=== PATIENT | female | born 1990 | race Caucasian/White ===

== ENCOUNTER 2016-12-19 21:42 | Emergency (ER) | payer BC, OTHER ==
[~2016-12-19] VITALS: Ht 152.4 cm; Wt 62.6 kg
[~2016-12-19 21:42] MED LIST: FERROUS SULF PO; PRENATAL VITAMI1 T10 PO; PRENATALS
[2016-12-19 21:57] VITALS: BP 124/89
--- NOTE | 2016-12-19 22:35 | NUR ---
TO ER BED 3
--- NOTE | 2016-12-19 22:37 | NUR ---
PATIENT PRESENTS TO ED WITH ABD PAIN . PT C/O NAUSEA AND VOMITTING AND NO DIARRHEA; SKIN IS PINK/WARM/DRY; AAOX4 WITH EVEN AND STEADY GAIT; LUNGS CLEAR BL; HR EVEN AND REGULAR; PT DENIES ANY FEVER, CP, SOB, OR COUGH AT THIS TIME; PATIENT STATES PAIN OF 8/10 AT THIS TIME; VSS; PATIENT POSITIONED FOR COMFORT; HOB ELEVATED; BEDRAILS UP X2; BED DOWN. ER MD MADE AWARE OF PT STATUS.
[2016-12-19] MEDS ORDERED: NACL 0.9% 500 ML IV ONE (23:07)
--- NOTE | 2016-12-19 23:07 | NUR ---
Patient being evaluated by physician at bedside.
[2016-12-19] MEDS ORDERED: ONDANSETRON 4 MG/2 ML VIAL IVP ONE (23:10)
[2016-12-19] MEDS ORDERED: KETOROLAC 30 MG/ML VIAL IVP ONE (23:10)
--- NOTE | 2016-12-19 23:38 | NUR ---
PT TO XRAY
[2016-12-19] MEDS ORDERED: LIDOCAINE VISCOUS 2% 20 ML UDC PO ONE (23:40)
[2016-12-19] MEDS ORDERED: PANTOPRAZOLE 40 MG INJ VIAL IVP ONE (23:40)
[2016-12-19] MEDS ORDERED: ALUMINUM HYD/MAG/SIMETHICONE 30 ML UDC PO ONE (23:40)
[2016-12-19] MEDS ORDERED: DICYCLOMINE HCL LIQUID 10 MG/5 ML UDC PO ONE (23:40)
[2016-12-20 00:29] VITALS: BP 114/61
--- NOTE | 2016-12-20 00:30 | NUR ---
Patient discharged with v/s stable. Written and verbal after care instructions given and explained. Patient alert, oriented and verbalized understanding of instructions. Ambulatory with steady gait. All questions addressed prior to discharge. ID band removed. Patient advised to follow up with PMD. Rx of PROTONIX AND ZOFRAN given. Patient educated on indication of medication including possible reaction and side effects. Opportunity to ask questions provided and answered.
== END 2016-12-20 00:29 | disposition home or self-care (01) ==
LOC: MED 21:43
DX: K29.70 Gastritis, unspecified, without bleeding (principal)
CPT/HCPCS: 36415; 76705; 80053; 81025; 83690; 85025; 96361; 96374; 96375; 99285; C9113; J1885; J2405

== ENCOUNTER 2017-05-02 23:09 | Emergency (ER) | payer OTHER ==
[~2017-05-02] VITALS: Ht 152.4 cm; Wt 60.0 kg
[2017-05-02 23:17] VITALS: BP 117/81
--- NOTE | 2017-05-03 00:20 | NUR ---
TO ER BED 6
[2017-05-03] MEDS ORDERED: ALUMINUM HYD/MAG/SIMETHICONE 30 ML UDC PO ONE (00:35)
[2017-05-03] MEDS ORDERED: DICYCLOMINE HCL LIQUID 10 MG/5 ML UDC PO ONE (00:35)
[2017-05-03] MEDS ORDERED: LIDOCAINE VISCOUS 2% 20 ML UDC PO ONE (00:35)
--- NOTE | 2017-05-03 00:42 | NUR ---
PATIENT PRESENTS TO ED WITH C/O ABD PAIN . PT SKIN IS PINK/WARM/DRY; AAOX4 WITH EVEN AND STEADY GAIT; LUNGS CLEAR BL; HR EVEN AND REGULAR; PT DENIES ANY FEVER, CP, SOB, OR COUGH AT THIS TIME; PATIENT STATES PAIN OF 5/10 AT THIS TIME; VSS; PATIENT POSITIONED FOR COMFORT; HOB ELEVATED; BEDRAILS UP X2; BED DOWN. ER MD MADE AWARE OF PT STATUS.
[2017-05-03] MEDS ORDERED: PANTOPRAZOLE 40 MG TABEC PO ONE (00:55)
--- NOTE | 2017-05-03 01:30 | NUR ---
Patient discharged with v/s stable. Written and verbal after care instructions given and explained. Patient verbalized understanding. Ambulatory with steady gait. All questions addressed prior to discharge. Advised to follow up with PMD.
[2017-05-03 01:31] VITALS: BP 117/81
== END 2017-05-03 01:31 | disposition home or self-care (01) ==
LOC: MED 23:09
DX: K29.70 Gastritis, unspecified, without bleeding (principal); R03.0 Elevated blood-pressure reading, without diagnosis of hypertension
CPT/HCPCS: 81002; 81025; 99284

== ENCOUNTER 2017-09-25 18:22 | Emergency (ER) | payer OTHER ==
[~2017-09-25] VITALS: Ht 149.9 cm; Wt 64.6 kg
[2017-09-25 18:30] VITALS: BP 137/107
--- NOTE | 2017-09-25 18:39 | NUR ---
PT TO RM 11
[2017-09-25] MEDS ORDERED: PANTOPRAZOLE 40 MG INJ VIAL IVP ONE (18:45)
[2017-09-25] MEDS ORDERED: NACL 0.9% 500 ML IV ONE (18:45)
[2017-09-25] MEDS ORDERED: KETOROLAC 30 MG/ML VIAL IVP ONE (18:45)
--- NOTE | 2017-09-25 19:00 | NUR ---
PT TO ROOM 11, IN NAD. RESP EVEN AND UNLABORED, MOM AT BEDSIDE C/O EPIGASTRIC PAIN 06/14 RADIATING TO RLQ RT LOWER BACK STARTED TODAY [id number]; DENIESN/V/D; TOOK OMEPRAZOLE PRESCRIBE ON LAST VISIT 05/03/17 FOR SAME S/S HX; DENIES RX; OMEPRAZOLE
[2017-09-25] MEDS ORDERED: NITROGLYCERIN 0.4 MG TAB SL ONE (19:35)
--- NOTE | 2017-09-25 19:45 | NUR ---
PT TAKEN TO CT SCAN VIA WHEEL CHAIR.
[2017-09-25 20:14] LABS: BASOPHILS # (AUTO) 0.1 K/uL (0.00-0.22); BASOPHILS % (AUTO) 0.8 % (0.0-2.0); EOSINOPHILS % (AUTO) 0.3 % (0.0-4.0); HEMATOCRIT 39.9 % (36-48); LYMPHOCYTES # (AUTO) 1.5 K/uL (2.5-16.5); LYMPHOCYTES % (AUTO) 20.2 % (20.5-51.1); MEAN CORPUSCULAR HEMOGLOBIN 27 pg (27-31); MEAN CORPUSCULAR HGB CONC 33 g/dL (33-37); MEAN CORPUSCULAR VOLUME 82 fL (80-94); MONOCYTES # (AUTO) 0.5 K/uL (0.8-1.0); MONOCYTES % (AUTO) 6.2 % (1.7-9.3); NEUTROPHILS # (AUTO) 5.4 K/uL (1.8-7.7); NEUTROPHILS % (AUTO) 72.5 % (42.2-75.2); PLATELET COUNT (AUTO) 351 K/uL (140-450); RED BLOOD CELL COUNT(AUTO) 4.85 MIL/uL (4.20-5.40); WHITE BLOOD COUNT (AUTO) 7.5 K/uL (4.8-10.8)
[2017-09-25 20:23] LABS: ANION GAP 12.9 (8-16); CARBON DIOXIDE 26.6 mmol/L (21-32); CREATININE 0.6 mg/dL (0.6-1.3); POTASSIUM 4.5 mmol/L (3.5-5.1)
[2017-09-25 20:41] LABS: ALBUMIN 3.4 g/dL (3.4-5.0); TOTAL BILIRUBIN 0.3 mg/dL (0.0-1.0)
--- NOTE | 2017-09-25 21:00 | NUR ---
PT IN BED TALKING W/ FAMILY AT BEDSIDE, WILL CONTINUE TO MONITOR.
[2017-09-25] MEDS ORDERED: traMADol 50 MG TAB PO ONE (21:05)
--- NOTE | 2017-09-25 21:45 | NUR ---
IV removed, catheter intact and site benign. Applied folded 4x4 gauze and tape to stop bleeding.
[2017-09-25 21:47] VITALS: BP 131/80
--- NOTE | 2017-09-25 21:48 | NUR ---
Patient discharged with v/s stable. Written and verbal after care instructions given and explained. Patient alert, oriented and verbalized understanding of instructions. Ambulatory with steady gait. All questions addressed prior to discharge. ID band removed. Patient advised to follow up with PMD. Rx of TRAMADOL, OMEPRAZOLE given. Patient educated on indication of medication including possible reaction and side effects. Opportunity to ask questions provided and answered.
== END 2017-09-25 21:47 | disposition home or self-care (01) ==
LOC: MED 18:22
DX: I88.0 Nonspecific mesenteric lymphadenitis (principal); R03.0 Elevated blood-pressure reading, without diagnosis of hypertension
CPT/HCPCS: 36415; 74176; 76700; 80053; 81025; 83690; 85025; 96361; 96374; 96375; 99285; C9113; J1885; J7030; Q0092

== ENCOUNTER 2018-01-09 21:33 | Emergency (ER) | payer OTHER ==
[~2018-01-09] VITALS: Ht 149.9 cm; Wt 64.4 kg
[2018-01-09 21:47] VITALS: BP 146/75
--- NOTE | 2018-01-09 21:55 | NUR ---
PT PROVIDING URINE AND AMBULATING TO LOBBY WITH VSS.
--- NOTE | 2018-01-10 00:06 | NUR ---
PATIENT AMBULATED TO ER BED 2
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
[2018-01-10] MEDS ORDERED: MECLIZINE 25 MG TAB PO ONE (00:55)
[2018-01-10 01:23] VITALS: BP 125/65
--- NOTE | 2018-01-10 01:23 | NUR ---
Patient discharged with v/s stable. Written and verbal after care instructions given and explained. Patient alert, oriented and verbalized understanding of instructions. Ambulatory with steady gait. All questions addressed prior to discharge. ID band removed. Patient advised to follow up with PMD. Rx of MECLIZINE 25MG given. Patient educated on indication of medication including possible reaction and side effects. Opportunity to ask questions provided and answered.
== END 2018-01-10 01:23 | disposition home or self-care (01) ==
LOC: MED 21:33
DX: H81.10 Benign paroxysmal vertigo, unspecified ear (principal)
CPT/HCPCS: 81002; 81025; 99283; J8597

== ENCOUNTER 2018-02-06 20:09 | Emergency (ER) | payer OTHER ==
[~2018-02-06] VITALS: Ht 149.9 cm; Wt 61.2 kg
[2018-02-06 20:15] VITALS: BP 149/70
--- NOTE | 2018-02-06 20:21 | NUR ---
PT AMBULATED TO ER BED 06
--- NOTE | 2018-02-06 20:28 | NUR ---
PATIENT PRESENTS TO ED WITH ABDOMINAL PAIN X1 HOUR. PT DENIES N/V/D; SKIN IS PINK/WARM/DRY; AAOX4 WITH EVEN AND STEADY GAIT; LUNGS CLEAR BL; HR EVEN AND REGULAR; PT DENIES ANY FEVER, CP, SOB, OR COUGH AT THIS TIME; PATIENT STATES PAIN OF 10/10 AT THIS TIME; VSS; PATIENT POSITIONED FOR COMFORT; HOB ELEVATED; BEDRAILS UP X1; BED DOWN. ER MD MADE AWARE OF PT STATUS.
--- NOTE | 2018-02-06 20:50 | NUR ---
US AT BEDSIDE
--- NOTE | 2018-02-06 21:14 | NUR ---
LAB AT BEDSIDE
[2018-02-06 21:30] LABS: BASOPHILS % (AUTO) 0.4 % (0.0-2.0); EOSINOPHILS % (AUTO) 0.1 % (0.0-4.0); HEMATOCRIT 39.7 % (36-48); LYMPHOCYTES # (AUTO) 2.6 K/uL (2.5-16.5); LYMPHOCYTES % (AUTO) 27.5 % (20.5-51.1); MEAN CORPUSCULAR HEMOGLOBIN 27 pg (27-31); MEAN CORPUSCULAR HGB CONC 33 g/dL (33-37); MONOCYTES # (AUTO) 0.7 K/uL (0.8-1.0); MONOCYTES % (AUTO) 7.2 % (1.7-9.3); NEUTROPHILS % (AUTO) 64.8 % (42.2-75.2); PLATELET COUNT (AUTO) 328 K/uL (140-450); RED CELL DISTRIBUTION WIDTH 12.8 % (11.6-13.7); WHITE BLOOD COUNT (AUTO) 9.3 K/uL (4.8-10.8)
[2018-02-06 21:34] VITALS: BP 149/70
--- NOTE | 2018-02-06 21:34 | NUR ---
Patient discharged with v/s stable. Written and verbal after care instructions given and explained. Patient alert, oriented and verbalized understanding of instructions. Ambulatory with steady gait. All questions addressed prior to discharge. ID band removed. Patient advised to follow up with PMD. Rx of ZANTAC given. Patient educated on indication of medication including possible reaction and side effects. Opportunity to ask questions provided and answered.
[2018-02-06 21:37] LABS: APPEARANCE,URINE CLEAR (CLEAR); BILIRUBIN,URINE NEGATIVE (NEGATIVE); BLOOD, URINE 1+ (NEGATIVE); COLOR,URINE YELLOW (YELLOW); LEUKOCYTE ESTERASE ,URINE NEGATIVE (NEGATIVE); NITRITE, URINE NEGATIVE (NEGATIVE); PH,URINE 5.5 (5.0-9.0); UGLUCOSE NEGATIVE (NEGATIVE)
[2018-02-06 21:39] LABS: ANION GAP 11.9 (8-16); CARBON DIOXIDE 26.4 mmol/L (21-32); CREATININE 0.6 mg/dL (0.6-1.3); POTASSIUM 4.3 mmol/L (3.5-5.1)
[2018-02-06 21:44] LABS: ALBUMIN 3.4 g/dL (3.4-5.0); TOTAL BILIRUBIN 0.3 mg/dL (0.0-1.0)
[2018-02-06 21:50] LABS: RBC,URINE 0-5 (RARE) /HPF (0-5); WBC,URINE 0-5 (RARE) /HPF (0-5)
== END 2018-02-06 21:34 | disposition home or self-care (01) ==
LOC: MED 20:09
DX: K27.9 Peptic ulcer, site unspecified, unspecified as acute or chronic, without hemorrhage or perforation (principal)
CPT/HCPCS: 36415; 76705; 80053; 81001; 81025; 82150; 83690; 85025; 99285; Q0092

== ENCOUNTER 2018-06-09 18:31 | Emergency (ER) | payer OTHER ==
[~2018-06-09] VITALS: Ht 152.4 cm; Wt 60.5 kg
[2018-06-09 18:57] VITALS: BP 144/96
--- NOTE | 2018-06-09 21:00 | NUR ---
Pt taken to bed 11.
--- NOTE | 2018-06-09 21:15 | NUR ---
PT PRESENTED ER WITH C/O PAIN TO THE LOWER ABDOMINAL/PELVIC REGION X 1 DAY. PT STATED SHE HAD NOT STARTED HER PERIOD THIS MONTH AND HOPES THAT THE VAGINAL BLEED THAT STARTED TODAY IS HER MENSTRAL, PER PT/ PT STATED SHE HAS BEEN HAVING VAG BLEEDING X 1 DAY. NKA ANF MEDICAL HX IS TUBAL LIGATION.DENIES N/V/D; SKIN IS PINK/WARM/DRY; AAOX4 WITH EVEN AND STEADY GAIT;NO FEVER AT THIS TIME PATIENT STATES PAIN OF 8/10 AT THIS TIME; VSS; PATIENT POSITIONED FOR COMFORT; HOB ELEVATED; BEDRAILS UP X2; BED DOWN. ER MD MADE AWARE OF PT STATUS.
--- NOTE | 2018-06-09 22:21 | NUR ---
Dr. Loredo evaluating patient at bedside.
[2018-06-09] MEDS ORDERED: KETOROLAC 60 MG/2 ML VIAL IM ONE (22:40)
[2018-06-10 00:19] VITALS: BP 144/96
--- NOTE | 2018-06-10 00:19 | NUR ---
Patient discharged with v/s stable. Written and verbal after care instructions given and explained. Patient alert, oriented and verbalized understanding of instructions. Ambulatory with steady gait. All questions addressed prior to discharge. ID band removed. Patient advised to follow up with PMD. Rx of MOTRIN was given. Patient educated on indication of medication including possible reaction and side effects. Opportunity to ask questions provided and answered.
== END 2018-06-10 00:19 | disposition home or self-care (01) ==
LOC: MED 18:31
DX: N94.6 Dysmenorrhea, unspecified (principal)
CPT/HCPCS: 76856; 81002; 81025; 96372; 99284; J1885; Q0092

== ENCOUNTER 2018-06-13 19:34 | Emergency (ER) | payer OTHER ==
[~2018-06-13] VITALS: Ht 165.1 cm; Wt 58.2 kg
[2018-06-13 19:42] VITALS: BP 138/109
--- NOTE | 2018-06-13 19:48 | NUR ---
MADE AWARE OF PT TACHYCARDIA 170.
--- NOTE | 2018-06-13 19:51 | NUR ---
PT AMBULATORY WITH STDEAY GAIT TO ED RITA
--- NOTE | 2018-06-13 20:04 | NUR ---
TO ER BED 10
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
[2018-06-13] MEDS ORDERED: KETOROLAC 30 MG/ML VIAL IVP ONE (20:15)
[2018-06-13] MEDS ORDERED: NACL 0.9% 1,000 ML IV ONE ×2 (20:15→22:10)
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
--- NOTE | 2018-06-13 21:00 | NUR ---
PT STABLE , LAYING IN BED, NO NEW NEEDS AT THIS TIME.
[2018-06-13] MEDS ORDERED: MORPHINE SULFATE 4 MG/ML SYR IVP ONE (21:30)
--- NOTE | 2018-06-13 22:00 | NUR ---
PT LAYING IN BED, MOTHER AT BEDSIDE, NO NEW NEEDS AT THIS TIME.
[2018-06-13 23:12] VITALS: BP 136/86
--- NOTE | 2018-06-13 23:12 | NUR ---
Patient discharged with v/s stable. Written and verbal after care instructions given and explained. Patient alert, oriented and verbalized understanding of instructions. Ambulatory with steady gait. All questions addressed prior to discharge. ID band removed. Patient advised to follow up with PMD. Rx of MOTRIN, NORCO given. Patient educated on indication of medication including possible reaction and side effects. Opportunity to ask questions provided and answered. PT ACCOMPANIED BY MOTHER WHO WILL BE DRIVING.
== END 2018-06-13 23:12 | disposition home or self-care (01) ==
LOC: MED 19:34
DX: S20.211A Contusion of right front wall of thorax, initial encounter (principal); V87.8XXA Person injured in other specified noncollision transport accidents involving motor vehicle (traffic), initial encounter; Y93.I9 Activity, other involving external motion; Y92.488 Other paved roadways as the place of occurrence of the external cause; Y99.8 Other external cause status
CPT/HCPCS: 93005; 96374; 96375; 99285; J1885; J2270

== ENCOUNTER 2018-07-14 05:30 | Emergency (ER) | payer OTHER ==
[~2018-07-14] VITALS: Ht 157.5 cm; Wt 54.4 kg
--- NOTE | 2018-07-14 05:30 | NUR ---
BIB EMS, ETOH. PT ASSISTED TO BED 9 FROM [facility]. ASSISTED BY EMS AND ER STAFF.
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
--- NOTE | 2018-07-14 05:32 | NUR ---
PT BIBA TO ED FOR EVALUATION OF ALOC. PER EMS;PT TOOK UNKNOWN SUBSTANCES, ETOH. AAO X 1, GCS 13, ABLE TO SPEAK WITH SHORT SENTENCES. AGITATED AND RESTLESS. PUPILS PERRLA 3/3 MM, BRISK. RESPIRATIONS EVEN AND UNLABORED, BL LUNG CLEAR. SKIN WARM/PINK/DRY, +PMSC. ABDOMEN SOFT, NON DISTEDNED, ACTIVE BOWEL SOUND X4. [employer]IST ST 160'S, UNABLE TO OBTAIN BP AT THIS TIME. PULSES STRONG. DR. JHAVERI AT BEDSIDE EVALUATING PT. WILL CONTINUE TO MONITOR
[2018-07-14] MEDS ORDERED: NACL 0.9% 2,000 ML IV ONE (05:40)
[2018-07-14] MEDS ORDERED: ZIPRASIDONE MESYLATE 20 MG/ML VIAL IM ONE (05:40)
--- NOTE | 2018-07-14 05:45 | NUR ---
FAMILY AT BEDSIDE
[2018-07-14] MEDS ORDERED: WATER STERILE 10 ML MC ONE (05:47)
[2018-07-14] MEDS ORDERED: MIDAZOLAM 2 MG/2 ML VIAL IVP ONE (06:25)
[2018-07-14 06:43] LABS: BARBITURATE, URINE NEG. ng/ml (NEG <=200); BENZODIAZEPINE, URINE NEG. ng/mL (NEG <=200); CANNABINOID, URINE POS. ng/mL (NEG <=50); COCAINE, URINE NEG. ng/mL (NEG <=300); OPIATE, URINE NEG. ng/mL (NEG <=2000); PHENCYCLIDINE SCREEN,URINE NEG. ng/mL (NEG <=25)
--- NOTE | 2018-07-14 07:02 | NUR ---
PT SLEEPING, RESPIRATIONS EVEN AND UNLABORED. SALVAGE W[address] 120'S, BP WNL. FAMILY AT BEDSIDE. WILL CONTINUE TO MONITOR
--- NOTE | 2018-07-14 07:14 | NUR ---
REPORT GIVEN TO FRANCISCO JAVIER LIZAMA
--- NOTE | 2018-07-14 07:15 | NUR ---
received report from Armond RN. Patient resting with eyes closed. Boyfriend by bedside. NAD. Will continue to monitor. No new orders.
--- NOTE | 2018-07-14 09:30 | NUR ---
PT AMBULATED 50 FT WITHOUT DIFFICULTY, STEADY GAIT
[2018-07-14 09:51] VITALS: BP 118/60
--- NOTE | 2018-07-14 09:54 | NUR ---
Patient discharged with v/s stable. Written and verbal after care instructions given and explained. Patient alert, oriented and verbalized understanding of instructions. Ambulatory with steady gait. All questions addressed prior to discharge. ID band removed. Patient advised to follow up with PMD. Opportunity to ask questions provided and answered.
== END 2018-07-14 09:54 | disposition home or self-care (01) ==
LOC: MED 05:30
DX: F19.10 Other psychoactive substance abuse, uncomplicated (principal)
CPT/HCPCS: 80305; 81025; 96372; 96374; 99284; J2250; J3486; J7030

== ENCOUNTER 2018-07-27 00:12 | Emergency (ER) | payer OTHER ==
[~2018-07-27] VITALS: Ht 160 cm; Wt 63.0 kg
[2018-07-27 00:12] VITALS: BP 143/81
--- NOTE | 2018-07-27 00:12 | NUR ---
PT GEOFF BLS. TAKEN TO BED 7
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
--- NOTE | 2018-07-27 00:30 | NUR ---
PT IN BED RESTING WITH EYES CLOSED. PT REMAINS TACHY AT 140, EVEN/REGULAR RESPIRATIONS AT 18. CONTINUE TO MONITOR.
--- NOTE | 2018-07-27 01:20 | NUR ---
Dr. Carpenter evaluating patient at bedside.
--- NOTE | 2018-07-27 02:37 | NUR ---
Patient awake and alert x4 now. Pt denies pain. Denies any complaints at this time. NAD. Dr. Carpenter aware of elevated HR. No new orders at this time. Warm blankets provided.
--- NOTE | 2018-07-27 03:20 | NUR ---
Patient appears to be resting comfortably in bed. Respirations even and unlabored. NAD noted. Will continue to monitor.
--- NOTE | 2018-07-27 03:45 | NUR ---
Pt provided with water. Tolerating po fluids. Will continue to monitor.
--- NOTE | 2018-07-27 04:20 | NUR ---
Pt requesting to go home. Pt is AOX4, answering all questions appropriately. Pt will try to call a ride. NAD noted. Pt unable to contact a ride home and state she will walk home.
[2018-07-27 04:25] VITALS: BP 121/71
== END 2018-07-27 04:25 | disposition home or self-care (01) ==
LOC: MED 00:12
DX: F10.129 Alcohol abuse with intoxication, unspecified (principal)
CPT/HCPCS: 99283

== ENCOUNTER 2019-09-07 18:22 | Emergency (ER) | payer OTHER ==
[~2019-09-07] VITALS: Ht 149.9 cm; Wt 62.6 kg
[2019-09-07 18:39] VITALS: BP 149/82
[2019-09-07] MEDS ORDERED: CRUSHER, PILL MC ONE (18:43)
--- NOTE | 2019-09-07 18:46 | NUR ---
Triage completed, ambulated out to ER waiting room.
--- NOTE | 2019-09-07 18:49 | NUR ---
Pt ambulated to bed 8.
--- NOTE | 2019-09-07 19:12 | NUR ---
US tech at bedside.
--- NOTE | 2019-09-07 19:20 | NUR ---
COMPLETED PATIENT ASSESSMENT. PATIENT SITTING UP IN BED, BED LOW AND LOCKED. ASSESSMENT NOTE: "PATIENT STATES SHARP EPIGASTRIC PAIN STARTED TODAY. STATES SHE HAD SIMILAR PAIN LAST YEAR AND WAS DX WITH ULCERS. ABD SOFT AND TENDER IN EPIGASTRIC AREA. -NVD. LUNGS CLEAR NO COUGH, SOB, CP REPORTED. PATIENT STATES NO OTHER SYMPTOMS. "
[2019-09-07 19:24] LABS: BASOPHILS % (AUTO) 0.2 % (0.0-2.0); EOSINOPHILS % (AUTO) 0.1 % (0.0-4.0); HEMATOCRIT 38.1 % (36-48); HEMOGLOBIN 12.3 g/dL (12.0-16.0); LYMPHOCYTES # (AUTO) 2.1 K/uL (2.5-16.5); LYMPHOCYTES % (AUTO) 30.3 % (20.5-51.1); MEAN CORPUSCULAR HEMOGLOBIN 27 pg (27-31); MEAN CORPUSCULAR HGB CONC 32 g/dL (33-37); MEAN CORPUSCULAR VOLUME 83.5 fL (80-94); MONOCYTES # (AUTO) 0.5 K/uL (0.8-1.0); MONOCYTES % (AUTO) 6.9 % (1.7-9.3); NEUTROPHILS # (AUTO) 4.3 K/uL (1.8-7.7); NEUTROPHILS % (AUTO) 62.5 % (42.2-75.2); PLATELET COUNT (AUTO) 306 K/uL (140-450); RED BLOOD CELL COUNT(AUTO) 4.57 MIL/uL (4.20-5.40); WHITE BLOOD COUNT (AUTO) 6.8 K/uL (4.8-10.8)
[2019-09-07 19:48] LABS: ANION GAP 9.1 (8-16); CARBON DIOXIDE 28.2 mmol/L (21-32); CREATININE 0.4 mg/dL (0.6-1.3); POTASSIUM 4.3 mmol/L (3.5-5.1)
[2019-09-07 19:54] LABS: ALBUMIN 3.1 g/dL (3.4-5.0); TOTAL BILIRUBIN 0.3 mg/dL (0.0-1.0)
[2019-09-07 20:24] LABS: APPEARANCE,URINE CLEAR (CLEAR); BILIRUBIN,URINE NEGATIVE (NEGATIVE); BLOOD, URINE TRACE-I (NEGATIVE); COLOR,URINE YELLOW (YELLOW); LEUKOCYTE ESTERASE ,URINE NEGATIVE (NEGATIVE); NITRITE, URINE NEGATIVE (NEGATIVE); UGLUCOSE NEGATIVE (NEGATIVE)
[2019-09-07 20:35] LABS: RBC,URINE NONE SEEN /HPF (0-5); WBC,URINE NONE SEEN /HPF (0-5)
[2019-09-07 21:34] VITALS: BP 140/80
--- NOTE | 2019-09-07 21:35 | NUR ---
Patient discharged with v/s stable. Written and verbal after care instructions given and explained. Patient alert, oriented and verbalized understanding of instructions. Ambulatory with steady gait. All questions addressed prior to discharge. ID band removed. Patient advised to follow up with PMD. Rx of reglan given. Patient educated on indication of medication including possible reaction and side effects. Opportunity to ask questions provided and answered.
== END 2019-09-07 21:35 | disposition home or self-care (01) ==
LOC: MED 18:22
DX: K29.70 Gastritis, unspecified, without bleeding (principal)
CPT/HCPCS: 36415; 76705; 80053; 81001; 81025; 83690; 85025; 99284; Q0092

== ENCOUNTER 2019-10-26 20:50 | Emergency (ER) | payer OTHER ==
[~2019-10-26] VITALS: Ht 152.4 cm; Wt 59.0 kg
[2019-10-26 21:20] VITALS: BP 122/62
--- NOTE | 2019-10-26 21:23 | NUR ---
TO LOBBY A/W BED AMBULATORY
--- NOTE | 2019-10-26 21:36 | NUR ---
PT AMBULATED TO ER BED 07
--- NOTE | 2019-10-26 21:40 | NUR ---
PT 29 Y/O FEMALE BIB SELF FOR C/O RUQ ABD PAIN X 1 DAY ON AND OFF. DENIES N/V/D. ABD IS FLAT, SOFT, AND NON-TENDER. BS PRESENT X 4. AFEBRILE. RESPIRATIONS ARE EVEN AND UNLABORD. SKIN IS WARM AND DRY TO TOUCH. PT AAO X 4. DENIES PAIN AT THIS TIME. VSS. MEDHX: NONE ALLERGIES: NKA
--- NOTE | 2019-10-26 22:00 | NUR ---
DR. JHAVERI AT BEDSIDE.
[2019-10-26] MEDS ORDERED: LORazepam 1 MG TAB PO ONE (22:05)
--- NOTE | 2019-10-26 22:30 | NUR ---
Patient discharged with v/s stable. Written and verbal after care instructions given and explained. Patient verbalized understanding. Ambulatory with steady gait. All questions addressed prior to discharge. Advised to follow up with PMD. PT LEFT WITHOUT DC INSTRUCTIONS REFUSED TO SIGN.
--- NOTE | 2019-10-26 22:30 | NUR ---
Antonio laboy in ED - 10/26/19 at 2243 by [email or web address] PATIENT ELOPED FROM FACILITY. DISCHARGE INSTRUCTIONS NOT GIVEN TO PATIENT. DR. CARRERAIED.
[2019-10-26 22:34] VITALS: BP 122/62
[2019-10-26 22:42] LABS: BARBITURATE, URINE NEG. ng/ml (NEG <=200); CANNABINOID, URINE NEG. ng/mL (NEG <=50); COCAINE, URINE NEG. ng/mL (NEG <=300); OPIATE, URINE NEG. ng/mL (NEG <=2000); PHENCYCLIDINE SCREEN,URINE NEG. ng/mL (NEG <=25)
[2019-10-26 23:03] LABS: BENZODIAZEPINE, URINE NEGATIVE ng/mL (NEG <=200)
== END 2019-10-26 22:30 | disposition home or self-care (01) ==
LOC: MED 20:50
DX: R10.11 Right upper quadrant pain (principal); R19.7 Diarrhea, unspecified; F17.210 Nicotine dependence, cigarettes, uncomplicated; F15.90 Other stimulant use, unspecified, uncomplicated; Z98.890 Other specified postprocedural states
CPT/HCPCS: 80305; 81025; 99283

== ENCOUNTER 2019-12-16 22:54 | Emergency (ER) | payer OTHER ==
[~2019-12-16] VITALS: Ht 152.4 cm; Wt 54.4 kg
[2019-12-16 23:02] VITALS: BP 157/88
--- NOTE | 2019-12-16 23:03 | NUR ---
PT AMBULATED TO ER BED 12
--- NOTE | 2019-12-16 23:09 | NUR ---
29f came from home c/o abdominal pain that radiates to lower back. pt denies n/v/d. no loc. pmhx:gastritis rx: denies
[2019-12-16] MEDS ORDERED: NACL 0.9% 500 ML IV ONE (23:27)
--- NOTE | 2019-12-16 23:27 | NUR ---
ERMD BEDSIDE EVALUATING PT
[2019-12-16] MEDS ORDERED: KETOROLAC 30 MG/ML VIAL IVP ONE (23:30)
[2019-12-16] MEDS ORDERED: ONDANSETRON 4 MG/2 ML VIAL IVP ONE (23:30)
[2019-12-16 23:33] LABS: BARBITURATE, URINE NEGATIVE ng/ml (NEG <=200); BENZODIAZEPINE, URINE NEGATIVE ng/mL (NEG <=200); CANNABINOID, URINE NEGATIVE ng/mL (NEG <=50); COCAINE, URINE NEGATIVE ng/mL (NEG <=300); OPIATE, URINE NEGATIVE ng/mL (NEG <=2000); PHENCYCLIDINE SCREEN,URINE NEGATIVE ng/mL (NEG <=25)
--- NOTE | 2019-12-16 23:56 | NUR ---
PT RESTING IN BED COMFORTABLY. PAIN MEDICATIONS ADMINISTERED. NO FURTHER NEEDS AT THIS TIME. BED AT LOWEST AND LOCKED, RAILS UP X 1.
[2019-12-17 00:02] LABS: BASOPHILS % (AUTO) 0.2 % (0.0-2.0); EOSINOPHILS % (AUTO) 0.1 % (0.0-4.0); HEMATOCRIT 36.6 % (36-48); HEMOGLOBIN 11.9 g/dL (12.0-16.0); LYMPHOCYTES # (AUTO) 2.3 K/uL (2.5-16.5); LYMPHOCYTES % (AUTO) 34.4 % (20.5-51.1); MEAN CORPUSCULAR HEMOGLOBIN 27 pg (27-31); MEAN CORPUSCULAR HGB CONC 33 g/dL (33-37); MEAN CORPUSCULAR VOLUME 81.5 fL (80-94); MONOCYTES # (AUTO) 0.5 K/uL (0.8-1.0); MONOCYTES % (AUTO) 7.9 % (1.7-9.3); NEUTROPHILS # (AUTO) 3.9 K/uL (1.8-7.7); NEUTROPHILS % (AUTO) 57.4 % (42.2-75.2); PLATELET COUNT (AUTO) 297 K/uL (140-450); RED BLOOD CELL COUNT(AUTO) 4.49 MIL/uL (4.20-5.40); RED CELL DISTRIBUTION WIDTH 13.4 % (11.6-13.7); WHITE BLOOD COUNT (AUTO) 6.7 K/uL (4.8-10.8)
[2019-12-17 00:14] LABS: ALBUMIN 3.4 g/dL (3.4-5.0); ANION GAP 10.4 (8-16); CARBON DIOXIDE 28.3 mmol/L (21-32); CREATININE 0.5 mg/dL (0.6-1.3); POTASSIUM 3.7 mmol/L (3.5-5.1); TOTAL BILIRUBIN 0.5 mg/dL (0.0-1.0)
--- NOTE | 2019-12-17 00:20 | NUR ---
US AT BEDSIDE
--- NOTE | 2019-12-17 00:44 | NUR ---
pt reports of decreased pain from 06/14 to 09/14. no further needs at this time. bed rails up x1, lowest and locked.
[2019-12-17 01:08] VITALS: BP 127/62
--- NOTE | 2019-12-17 01:08 | NUR ---
Patient discharged with v/s stable. Written and verbal after care instructions given and explained. Patient alert, oriented and verbalized understanding of instructions. Ambulatory with steady gait. All questions addressed prior to discharge. ID band removed. Patient advised to follow up with PMD. Rx of ZOFRAN AND MOTRIN given. Patient educated on indication of medication including possible reaction and side effects. Opportunity to ask questions provided and answered.
--- NOTE | 2019-12-17 11:10 | NUR ---
Late entry. Confirmed with RN that 0.9 NS IV completed at 0100
== END 2019-12-17 01:09 | disposition home or self-care (01) ==
LOC: MED 22:54
DX: R10.13 Epigastric pain (principal); F15.10 Other stimulant abuse, uncomplicated; R11.10 Vomiting, unspecified; Z98.890 Other specified postprocedural states
CPT/HCPCS: 36415; 76705; 80053; 80305; 81002; 81025; 83690; 85025; 96361; 96374; 96375; 99284; J1885; J2405; J7030; Q0092

== ENCOUNTER 2020-02-22 14:54 | Emergency (ER) | payer OTHER, SELFPAY ==
[~2020-02-22] VITALS: Ht 149.9 cm; Wt 54.4 kg
[2020-02-22 15:02] VITALS: BP 125/88
--- NOTE | 2020-02-22 15:07 | NUR ---
29 Y/O F C/C LOSS OF TASTE AND SMELL X 1 WEEK. NO OTHER S/S NOTED. PT ASYMPTOMATIC, EUPNIC, NO DISTRESS. A/OX4. NKA. NO HX. NO RX.
[2020-02-22 15:23] VITALS: BP 125/88
--- NOTE | 2020-02-22 15:24 | NUR ---
Patient discharged with v/s stable. Written and verbal after care instructions given and explained. Patient alert, oriented and verbalized understanding of instructions. Ambulatory with steady gait. All questions addressed prior to discharge. ID band removed. Patient advised to follow up with PMD. Rx of PROMETHAZINE AND TYLENOL given. Patient educated on indication of medication including possible reaction and side effects. Opportunity to ask questions provided and answered.
== END 2020-02-22 15:24 | disposition home or self-care (01) ==
LOC: EEVIPCON 14:54 → MED 14:54
DX: B34.9 Viral infection, unspecified (principal); F15.10 Other stimulant abuse, uncomplicated; Z20.828 Contact with and (suspected) exposure to other viral communicable diseases
CPT/HCPCS: 99283; U0003

== ENCOUNTER 2020-07-19 15:02 | Emergency (ER) | payer OTHER, SELFPAY ==
[~2020-07-19] VITALS: Ht 149.9 cm; Wt 64.4 kg
[2020-07-19 15:07] VITALS: BP 110/78
[2020-07-19] MEDS ORDERED: KETOROLAC 30 MG/ML VIAL IVP ONE (15:55)
[2020-07-19 16:08] LABS: BASOPHILS % (AUTO) 0.6 % (0.0-2.0); EOSINOPHILS % (AUTO) 0.1 % (0.0-4.0); HEMATOCRIT 36.1 % (36-48); HEMOGLOBIN 11.9 g/dL (12.0-16.0); LYMPHOCYTES # (AUTO) 2.3 K/uL (2.5-16.5); LYMPHOCYTES % (AUTO) 31.3 % (20.5-51.1); MEAN CORPUSCULAR HEMOGLOBIN 27 pg (27-31); MEAN CORPUSCULAR HGB CONC 33 g/dL (33-37); MEAN CORPUSCULAR VOLUME 81.5 fL (80-94); MONOCYTES # (AUTO) 0.8 K/uL (0.8-1.0); MONOCYTES % (AUTO) 11.2 % (1.7-9.3); NEUTROPHILS # (AUTO) 4.2 K/uL (1.8-7.7); NEUTROPHILS % (AUTO) 56.8 % (42.2-75.2); PLATELET COUNT (AUTO) 292 K/uL (140-450); RED BLOOD CELL COUNT(AUTO) 4.42 MIL/uL (4.20-5.40); RED CELL DISTRIBUTION WIDTH 13.1 % (11.6-13.7); WHITE BLOOD COUNT (AUTO) 7.3 K/uL (4.8-10.8)
[2020-07-19] MEDS ORDERED: NACL 0.9% 1,000 ML IV ONE (16:25)
[2020-07-19 16:34] LABS: ALBUMIN 3.2 g/dL (3.4-5.0); ANION GAP 13.6 (8-16); CARBON DIOXIDE 27.7 mmol/L (21-32); CREATININE 0.4 mg/dL (0.6-1.3); POTASSIUM 4.3 mmol/L (3.5-5.1); TOTAL BILIRUBIN 0.4 mg/dL (0.0-1.0)
[2020-07-19 16:35] LABS: APPEARANCE,URINE CLEAR (CLEAR); BILIRUBIN,URINE NEGATIVE (NEGATIVE); BLOOD, URINE TRACE-L (NEGATIVE); COLOR,URINE YELLOW (YELLOW); LEUKOCYTE ESTERASE ,URINE NEGATIVE (NEGATIVE); NITRITE, URINE NEGATIVE (NEGATIVE); PH,URINE 5.5 (5.0-9.0); UGLUCOSE NEGATIVE (NEGATIVE)
[2020-07-19 17:15] VITALS: BP 142/85
[2020-07-19 17:20] LABS: RBC,URINE 0-5 /HPF (0-5); WBC,URINE 0-5 /HPF (0-5)
== END 2020-07-19 17:14 | disposition home or self-care (01) ==
LOC: MED 15:02
DX: R10.13 Epigastric pain (principal); Z98.890 Other specified postprocedural states
CPT/HCPCS: 36415; 76705; 80053; 81001; 81025; 83690; 85025; 96361; 96374; 99284; J1885; J7030

== ENCOUNTER 2020-12-08 02:15 | Emergency (ER) | payer MEDICAID, OTHER ==
[~2020-12-08] VITALS: Ht 149.9 cm; Wt 63.1 kg
[2020-12-08 02:30] VITALS: BP 137/69
--- NOTE | 2020-12-08 02:30 | NUR ---
to bed ambulatory
--- NOTE | 2020-12-08 02:55 | NUR ---
30 Y/O FEMALE PRESENTED TO ED C/O RUQ ABD PAIN X 3 - 4 HRS. PT DESCRIBES 10/10 SHARP CONTINUOUS PAIN AND IS PRECIPATED BY EATING GREASY JUNK FOOD. PT'S PAIN DOES RADIATE TO RT BACK. NO OBSERVED MALNORMALITIES ON ABD. ABD ROUND, SOFT AND TENDER UPON PALPATION OF RUQ. NORMOACTIVE BOWEL SOUNDS IN ALL QUADRANTS. PT C/O OF NAUSEA BUT NO VOMITING. PT DENIES FEVER, BODY ACHES, CHILLS AND DYSURIA. PT PLACED IN GOWN , RESTING IN BED , LOCKED AND IN LOWEST POSITION, HOB ELEVATED, SIDE RAIL X1. VSS. NO ACUTE DISTRESS. PMH: CSECTION NKA
--- NOTE | 2020-12-08 02:56 | NUR ---
Dr. Gray examining patient.
[2020-12-08] MEDS ORDERED: KETOROLAC 30 MG/ML VIAL IVP ONE (03:00)
--- NOTE | 2020-12-08 03:00 | NUR ---
20 G IV PLACED IN RT AC , BLOOD LABS COLLECTED AND HANDED TO MONICA FROM LAB.
[2020-12-08] MEDS ORDERED: NACL 0.9% 1,000 ML IV ONE (03:05)
[2020-12-08 03:10] LABS: APPEARANCE,URINE CLEAR (CLEAR); BILIRUBIN,URINE NEGATIVE (NEGATIVE); BLOOD, URINE NEGATIVE (NEGATIVE); COLOR,URINE YELLOW (YELLOW); LEUKOCYTE ESTERASE ,URINE NEGATIVE (NEGATIVE); NITRITE, URINE NEGATIVE (NEGATIVE); UGLUCOSE NEGATIVE (NEGATIVE)
[2020-12-08 03:11] LABS: BASOPHILS # (AUTO) 0.1 K/uL (0.00-0.22); BASOPHILS % (AUTO) 0.8 % (0.0-2.0); EOSINOPHILS % (AUTO) 0.7 % (0.0-4.0); HEMATOCRIT 36.7 % (36-48); LYMPHOCYTES # (AUTO) 1.9 K/uL (2.5-16.5); LYMPHOCYTES % (AUTO) 28.2 % (20.5-51.1); MEAN CORPUSCULAR HEMOGLOBIN 27 pg (27-31); MEAN CORPUSCULAR HGB CONC 33 g/dL (33-37); MEAN CORPUSCULAR VOLUME 83.2 fL (80-94); MONOCYTES # (AUTO) 0.7 K/uL (0.8-1.0); MONOCYTES % (AUTO) 11.1 % (1.7-9.3); NEUTROPHILS # (AUTO) 3.9 K/uL (1.8-7.7); NEUTROPHILS % (AUTO) 59.2 % (42.2-75.2); PLATELET COUNT (AUTO) 275 K/uL (140-450); RED BLOOD CELL COUNT(AUTO) 4.41 MIL/uL (4.20-5.40); RED CELL DISTRIBUTION WIDTH 14.2 % (11.6-13.7); WHITE BLOOD COUNT (AUTO) 6.7 K/uL (4.8-10.8)
[2020-12-08 03:27] LABS: ALBUMIN 3.5 g/dL (3.4-5.0); ANION GAP 11.8 (8-16); CARBON DIOXIDE 27.2 mmol/L (21-32); CREATININE 0.6 mg/dL (0.6-1.3); TOTAL BILIRUBIN 0.3 mg/dL (0.0-1.0)
--- NOTE | 2020-12-08 04:00 | NUR ---
ULTRASOUND AT BEDSIDE.
--- NOTE | 2020-12-08 05:00 | NUR ---
PT SLEEPING IN BED, LOCKED AND IN LOWEST POSITION, HOB ELEVATED, SIDE RAIL X 2. VSS. VISIBLE RISE AND FALL OF CHEST. RR EVEN AND UNLABORED. AROUSABLE TO VERBAL STIMULATION.
[2020-12-08] MEDS ORDERED: IBUP-2213 PO (05:34)
[2020-12-08] MEDS ORDERED: OMEP40EC24 PO (05:34)
[2020-12-08] MEDS ORDERED: ACET-8386 PO (05:34)
[2020-12-08] MEDS ORDERED: ONDA8TAB87 PO (05:34)
--- NOTE | 2020-12-08 05:44 | NUR ---
IV removed, catheter intact and site benign. Applied folded 4x4 gauze and tape to stop bleeding.
[2020-12-08 05:45] VITALS: BP 130/60
--- NOTE | 2020-12-08 05:45 | NUR ---
Patient discharged with v/s stable. Written and verbal after care instructions given and explained. Patient alert, oriented and verbalized understanding of instructions. Ambulatory with steady gait. All questions addressed prior to discharge. ID band removed. Patient advised to follow up with PMD. Rx of NORCO , IBUPROFEN & PRILOSEC given. Patient educated on indication of medication including possible reaction and side effects. Opportunity to ask questions provided and answered.
== END 2020-12-08 05:45 | disposition home or self-care (01) ==
LOC: MED 02:15
DX: R10.9 Unspecified abdominal pain (principal); Z90.49 Acquired absence of other specified parts of digestive tract
CPT/HCPCS: 36415; 76705; 80053; 81003; 81025; 83690; 85025; 96361; 96374; 99284; J1885; J7030

== ENCOUNTER 2022-01-28 03:33 | Emergency (ER) | payer MEDICAID, OTHER ==
[~2022-01-28] VITALS: Ht 149.9 cm; Wt 62.1 kg
[~2022-01-28 03:33] MED LIST changes: +ACET-8386 PO; -FERROUS SULF PO; +IBUP-2213 PO; +OMEP40EC24 PO; +ONDA8TAB87 PO; -PRENATAL VITAMI1 T10 PO; -PRENATALS
[2022-01-28 03:50] VITALS: BP 127/80
--- NOTE | 2022-01-28 03:53 | NUR ---
TO LOBBY A/W BED AMBULATORY
[2022-01-28] MEDS ORDERED: ACETAMINOPHEN EXTRA STRENGTH 500 MG TAB PO ONE (04:35)
[2022-01-28] MEDS ORDERED: ONDANSETRON 4 MG ODT PO ONE (04:35)
--- NOTE | 2022-01-28 04:40 | NUR ---
medicated as per Ermds order tolerated well
[2022-01-28] MEDS ORDERED: ONDA-188 SL (05:14)
[2022-01-28] MEDS ORDERED: BEN10 PO (05:14)
--- NOTE | 2022-01-28 05:43 | NUR ---
PATIENT EVALED AND DISCHARGED BY ER MD. CAMARENA. BELONGINGS RECONCILED. PATIENT AMBULATORY WITH STEADY GAIT.
[2022-01-28 05:44] VITALS: BP 112/76
== END 2022-01-28 05:43 | disposition home or self-care (01) ==
LOC: MED 03:33
DX: R10.9 Unspecified abdominal pain (principal); R11.0 Nausea; Z79.899 Other long term (current) drug therapy
CPT/HCPCS: 81002; 81025; 99283; Q0162

== ENCOUNTER 2022-07-26 06:40 | Emergency (ER) | payer OTHER ==
[~2022-07-26] VITALS: Ht 149.9 cm; Wt 57.2 kg
[~2022-07-26 06:40] MED LIST changes: +BEN10 PO; +ONDA-188 SL
[2022-07-26 06:51] VITALS: BP 157/116
--- NOTE | 2022-07-26 07:05 | NUR ---
Patient taken to room 10. Patient is lying in bed, no c/o pain, or s/s of distress, on monitor.
--- NOTE | 2022-07-26 07:06 | NUR ---
Report given to ER Nurse Aysha RN. ER Nurse Aysha RN verbalized understanding, no further questions.
--- NOTE | 2022-07-26 07:15 | NUR ---
ER Physician at bedside assessing patient.
[2022-07-26] MEDS ORDERED: NACL 0.9% 1,000 ML IV ONE (07:20)
[2022-07-26] MEDS ORDERED: LORazepam 2 MG/ML VIAL IVP ONE (07:20)
--- NOTE | 2022-07-26 07:25 | NUR ---
PRIOR TO MED ADMINISTRATION PATIENT STATED FRIEND WILL BE PICKING HER UP AND DRIVING HER HOME.
--- NOTE | 2022-07-26 07:30 | NUR ---
RACK PUSHER AT BEDSIDE
[2022-07-26 07:35] LABS: BASOPHILS % (AUTO) 0.4 % (0.0-2.0); EOSINOPHILS % (AUTO) 0.1 % (0.0-4.0); HEMATOCRIT 38.5 % (36-48); LYMPHOCYTES # (AUTO) 2.6 K/uL (2.5-16.5); LYMPHOCYTES % (AUTO) 41.1 % (20.5-51.1); MEAN CORPUSCULAR HEMOGLOBIN 27 pg (27-31); MEAN CORPUSCULAR HGB CONC 34 g/dL (33-37); MEAN CORPUSCULAR VOLUME 79.9 fL (80-94); MONOCYTES # (AUTO) 0.5 K/uL (0.8-1.0); MONOCYTES % (AUTO) 7.5 % (1.7-9.3); NEUTROPHILS # (AUTO) 3.2 K/uL (1.8-7.7); NEUTROPHILS % (AUTO) 50.9 % (42.2-75.2); PLATELET COUNT (AUTO) 393 K/uL (140-450); RED BLOOD CELL COUNT(AUTO) 4.82 MIL/uL (4.20-5.40); RED CELL DISTRIBUTION WIDTH 12.8 % (11.6-13.7); WHITE BLOOD COUNT (AUTO) 6.4 K/uL (4.8-10.8)
[2022-07-26 07:54] LABS: ALBUMIN 3.4 g/dL (3.4-5.0); ANION GAP 15.5 (8-16); CARBON DIOXIDE 26.8 mmol/L (21-32); CREATININE 0.4 mg/dL (0.6-1.3); POTASSIUM 3.3 mmol/L (3.5-5.1); TOTAL BILIRUBIN 0.3 mg/dL (0.0-1.0)
[2022-07-26 07:54] LABS: BARBITURATE, URINE NEGATIVE ng/ml (NEG <=200); BENZODIAZEPINE, URINE NEGATIVE ng/mL (NEG <=200); CANNABINOID, URINE NEGATIVE ng/mL (NEG <=50); COCAINE, URINE NEGATIVE ng/mL (NEG <=300); OPIATE, URINE NEGATIVE ng/mL (NEG <=2000); PHENCYCLIDINE SCREEN,URINE NEGATIVE ng/mL (NEG <=25)
--- NOTE | 2022-07-26 08:02 | NUR ---
31/F PRESENTS TO ED WITH C/O INTERMITTENT EPISODES OF SOB SINCE 1AM. PATIENT REPORTS EPISODES BEGAN SHORTLY AFTER SMOKING METH, STATING "I SMOKE METH EVERY DAY" PATIENT DENIES USING MORE THAN HER USUAL AMOUNT. UPON TRIAGE PATIENTS HR 174, O2 100% ON ROOM AIR, DENIES CP, DIZZINESS, N/V/D. UPON ARRIVAL PATIENT PLACED IN GOWN ON BEDSIDE DUPLEX TRIMMER, EKG PERFORMED BY EMT. DR. KULKARNI ASSESSED PATIENT BEDSIDE ON ARRIVAL.
[2022-07-26] MEDS ORDERED: LORA-476 PO (08:28)
[2022-07-26] MEDS ORDERED: LORazepam 1 MG TAB PO ONE (08:30)
--- NOTE | 2022-07-26 09:22 | NUR ---
IV removed, catheter intact and site benign. Applied folded 4x4 gauze and tape to stop bleeding.
--- NOTE | 2022-07-26 09:22 | NUR ---
UPON D/C PATIENTS HR 148, DR. KULKARNI MADE AWARE AND STATED PATIENT OKAY TO BE D/C HOME.
[2022-07-26 09:23] VITALS: BP 147/85
--- NOTE | 2022-07-26 09:23 | NUR ---
Patient discharged with v/s stable. Written and verbal after care instructions ABOUOT STIMULANT USE DISORDER-METHAMPHETAMINE given and explained. Patient alert, oriented and verbalized understanding of instructions. Ambulatory with steady gait. All questions addressed prior to discharge. ID band removed. Patient advised to follow up with PMD. Rx of ATIVAN given. Patient educated on indication of medication including possible reaction and side effects. Opportunity to ask questions provided and answered. PATIENT PROVIDED WITH ALCOHOL AND SUBSTANCE ABUSE RESOURCES.
== END 2022-07-26 09:23 | disposition home or self-care (01) ==
LOC: MED 06:40
DX: R06.02 Shortness of breath (principal); T43.651A Poisoning by methamphetamines accidental (unintentional), initial encounter; Y92.89 Other specified places as the place of occurrence of the external cause
CPT/HCPCS: 36415; 71045; 80053; 80305; 83880; 84484; 85025; 93005; 96361; 96374; 99291; J2060; Q0092

== ENCOUNTER 2022-09-10 23:00 | Emergency (ER) | payer OTHER ==
[~2022-09-10] VITALS: Ht 152.4 cm; Wt 54.4 kg
[~2022-09-10 23:00] MED LIST changes: -ACET-8386 PO; +ACET-8905 PO; +LORA-476 PO
--- NOTE | 2022-09-10 23:00 | NUR ---
Note benoit in EDM - 09/10/22 at 2355 by [email or web address] 32 Y/O F PRESENTS WITH UPPERGASTRIC PAIN TODAY 05/15. A&OX4, SKIN INTACT, RESPIRATIONS EVEN AND UNLABORED. [facility]-PT MARGUERITE NUNEZ
[2022-09-10 23:10] VITALS: BP 135/90
--- NOTE | 2022-09-10 23:13 | NUR ---
TO BED AMBULATORY
--- NOTE | 2022-09-10 23:25 | NUR ---
32 Y/O F PRESENTS WITH UPPERGASTRIC PAIN TODAY 05/15. A&OX4, SKIN INTACT, RESPIRATIONS EVEN AND UNLABORED. PMH-PT DENIES NKA
--- NOTE | 2022-09-10 23:39 | NUR ---
Patient being evaluated by physician at bedside.
[2022-09-10] MEDS ORDERED: ONDANSETRON 4 MG ODT PO ONE (23:45)
[2022-09-10] MEDS ORDERED: HYDROcodone/APAP 5/325 MG 1 TAB TAB PO ONE (23:45)
--- NOTE | 2022-09-11 00:03 | NUR ---
LAB AT BEDSIDE
[2022-09-11 00:11] VITALS: BP 135/90
[2022-09-11 00:11] LABS: BASOPHILS % (AUTO) 0.3 % (0.0-2.0); EOSINOPHILS % (AUTO) 0.3 % (0.0-4.0); HEMATOCRIT 39.2 % (36-48); LYMPHOCYTES # (AUTO) 2.5 K/uL (2.5-16.5); LYMPHOCYTES % (AUTO) 30.4 % (20.5-51.1); MEAN CORPUSCULAR HEMOGLOBIN 27 pg (27-31); MEAN CORPUSCULAR HGB CONC 33 g/dL (33-37); MEAN CORPUSCULAR VOLUME 82.6 fL (80-94); MONOCYTES # (AUTO) 0.6 K/uL (0.8-1.0); MONOCYTES % (AUTO) 7.6 % (1.7-9.3); NEUTROPHILS % (AUTO) 61.4 % (42.2-75.2); PLATELET COUNT (AUTO) 365 K/uL (140-450); RED BLOOD CELL COUNT(AUTO) 4.75 MIL/uL (4.20-5.40); WHITE BLOOD COUNT (AUTO) 8.1 K/uL (4.8-10.8)
--- NOTE | 2022-09-11 00:11 | NUR ---
PATIENT ELOPED FROM FACILITY. DISCHARGE INSTRUCTIONS NOT GIVEN TO PATIENT. DR. MCCOY NOTIFIED.
--- NOTE | 2022-09-11 00:11 | NUR ---
PT STATES SHE FEELS BETTER AND WANTS TO LEAVE, ERMMitch MCCOY MADE AWARE.
[2022-09-11 00:29] LABS: ALBUMIN 3.9 g/dL (3.4-5.0); ANION GAP 9.9 (8-16); CARBON DIOXIDE 33.7 mmol/L (21-32); CREATININE 0.6 mg/dL (0.6-1.3); POTASSIUM 3.6 mmol/L (3.5-5.1); TOTAL BILIRUBIN 0.4 mg/dL (0.0-1.0)
== END 2022-09-11 00:11 | disposition left against medical advice (07) ==
LOC: MED 23:00
DX: R10.13 Epigastric pain (principal); Z72.89 Other problems related to lifestyle
CPT/HCPCS: 36415; 80053; 83690; 84703; 85025; 99283; Q0162

== ENCOUNTER 2022-11-12 10:20 | Emergency (ER) | payer MEDICAID, OTHER ==
[~2022-11-12] VITALS: Ht 157.5 cm; Wt 63.5 kg
[2022-11-12 10:45] VITALS: BP 150/84
[2022-11-12] MEDS ORDERED: NACL 0.9% 1,000 ML IV ONE (10:50)
[2022-11-12] MEDS ORDERED: LORazepam 2 MG/ML VIAL IVP ONE (10:50)
[2022-11-12] MEDS ORDERED: LORazepam 2 MG/ML VIAL IM ONE (11:00)
--- NOTE | 2022-11-12 11:39 | NUR ---
pt refused urine sample. pt refusing iv and meds at this time. pt wanting to leave ama
[2022-11-12 11:49] VITALS: BP 150/84
--- NOTE | 2022-11-12 11:49 | NUR ---
Patient does not wish to proceed with medical care recommended by Marianela JUNIOR. Patient given information related to possible complications, up to and including , which could occur as a result of leaving hospital at this time. Patient verbalizes understanding of risks involved leaving against medical advice. Patient has signed AMA form.
== END 2022-11-12 11:42 | disposition left against medical advice (07) ==
LOC: MED 10:20
DX: F15.10 Other stimulant abuse, uncomplicated (principal); F22 Delusional disorders; Z79.899 Other long term (current) drug therapy
CPT/HCPCS: 99281; J2060

== ENCOUNTER 2022-11-12 11:51 | Emergency (ER) | payer MEDICAID ==
[~2022-11-12] VITALS: Ht 154.9 cm; Wt 59.9 kg
[2022-11-12 11:53] VITALS: BP 132/80
[2022-11-12] MEDS ORDERED: NACL 0.9% 1,000 ML IV ONE (13:30)
[2022-11-12] MEDS ORDERED: LORazepam 2 MG/ML VIAL IM ONE (13:30)
== END 2022-11-12 16:00 | disposition left against medical advice (07) ==
LOC: MED 11:51
DX: F41.9 Anxiety disorder, unspecified (principal); F22 Delusional disorders; F15.10 Other stimulant abuse, uncomplicated; R00.0 Tachycardia, unspecified; Z79.899 Other long term (current) drug therapy; Z79.891 Long term (current) use of opiate analgesic; Z79.1 Long term (current) use of non-steroidal anti-inflammatories (NSAID)
CPT/HCPCS: 99281

== ENCOUNTER 2022-12-27 21:40 | Emergency (ER) | payer MEDICAID, OTHER ==
[~2022-12-27] VITALS: Ht 152.4 cm; Wt 56.7 kg
[2022-12-27 23:04] VITALS: BP 116/80
[2022-12-28] MEDS ORDERED: DICYCLOMINE HCL LIQUID 20 MG, ALUMINUM HYD/MAG/SIMETHICONE 30 ML, LIDOCAINE VISCOUS 2% ... PO ONE ×3 (03:35)
[2022-12-28 03:50] LABS: APPEARANCE,URINE CLEAR (CLEAR); BILIRUBIN,URINE NEGATIVE (NEGATIVE); BLOOD, URINE TRACE-I (NEGATIVE); COLOR,URINE YELLOW (YELLOW); LEUKOCYTE ESTERASE ,URINE NEGATIVE (NEGATIVE); NITRITE, URINE NEGATIVE (NEGATIVE); UGLUCOSE NEGATIVE (NEGATIVE)
[2022-12-28 03:51] LABS: BASOPHILS % (AUTO) 0.3 % (0.0-2.0); EOSINOPHILS % (AUTO) 0.4 % (0.0-4.0); HEMATOCRIT 37.8 % (36-48); HEMOGLOBIN 12.4 g/dL (12.0-16.0); LYMPHOCYTES # (AUTO) 2.6 K/uL (2.5-16.5); LYMPHOCYTES % (AUTO) 40.4 % (20.5-51.1); MEAN CORPUSCULAR HEMOGLOBIN 27 pg (27-31); MEAN CORPUSCULAR HGB CONC 33 g/dL (33-37); MEAN CORPUSCULAR VOLUME 83.6 fL (80-94); MONOCYTES # (AUTO) 0.5 K/uL (0.8-1.0); MONOCYTES % (AUTO) 8.2 % (1.7-9.3); NEUTROPHILS # (AUTO) 3.3 K/uL (1.8-7.7); NEUTROPHILS % (AUTO) 50.7 % (42.2-75.2); PLATELET COUNT (AUTO) 325 K/uL (140-450); RED BLOOD CELL COUNT(AUTO) 4.52 MIL/uL (4.20-5.40); RED CELL DISTRIBUTION WIDTH 13.4 % (11.6-13.7); WHITE BLOOD COUNT (AUTO) 6.5 K/uL (4.8-10.8)
[2022-12-28] MEDS ORDERED: ALUMINUM HYD/MAG/SIMETHICONE 30 ML UDC ONE (03:54)
[2022-12-28] MEDS ORDERED: DICYCLOMINE HCL LIQUID 10 MG/5 ML UDC ONE (03:54)
[2022-12-28 04:05] LABS: RBC,URINE 0-5 /HPF (0-5); WBC,URINE 0-5 /HPF (0-5)
[2022-12-28 04:06] LABS: ALBUMIN 3.6 g/dL (3.4-5.0); ANION GAP 10.3 (8-16); CARBON DIOXIDE 31.5 mmol/L (21-32); CREATININE 0.6 mg/dL (0.6-1.3); POTASSIUM 3.8 mmol/L (3.5-5.1); TOTAL BILIRUBIN 0.3 mg/dL (0.0-1.0)
--- NOTE | 2022-12-28 04:07 | NUR ---
pt refused the medication, she felt like throwing up. notified.
--- NOTE | 2022-12-28 04:40 | NUR ---
pt went to ct
--- NOTE | 2022-12-28 04:41 | NUR ---
Antonio laboy in [facility] - 12/28/22 at 0458 by JOSÉ ANTONIO PT TO BED #9
--- NOTE | 2022-12-28 04:43 | NUR ---
Antonio laboy in [facility] - 12/28/[address] at [address] Estrada examining patient.
--- NOTE | 2022-12-28 04:50 | NUR ---
Note benoit in ED - 12/28/22 at 0502 by [id number] Patient resting in bed, A/Ox4, chest rise and fall symmetrical, no c/o pain or s/s of distress, on monitor.
--- NOTE | 2022-12-28 05:11 | NUR ---
PT TAKEN TO BED 8 FROM ULTRASOUND
--- NOTE | 2022-12-28 05:11 | NUR ---
Antonio laboy in [facility] - 12/28/22 at 0511 by JANE PT TAKEN TO BED 8
[2022-12-28] MEDS ORDERED: ONDA-188 PO (05:45)
[2022-12-28] MEDS ORDERED: FAMO-90 PO (05:45)
[2022-12-28] MEDS ORDERED: SIME125T38 PO (05:45)
[2022-12-28] MEDS ORDERED: TRAM50TA3 PO (05:45)
--- NOTE | 2022-12-28 05:58 | NUR ---
Patient discharged with v/s stable. Written and verbal after care instructions given and explained. Patient alert, oriented and verbalized understanding of instructions. Ambulatory with steady gait. All questions addressed prior to discharge. ID band removed. Patient advised to follow up with PMD. Rx of pEPCID, zOFRAN, mYLANTA, MYLANTA AND tRAMADOL given. Opportunity to ask questions provided and answered.
--- NOTE | 2022-12-28 06:07 | NUR ---
The patient's care was reviewed and supervised by Angie Bianchi RN.
== END 2022-12-28 05:58 | disposition home or self-care (01) ==
LOC: MED 21:40
DX: K29.70 Gastritis, unspecified, without bleeding (principal); Z79.899 Other long term (current) drug therapy; Z79.1 Long term (current) use of non-steroidal anti-inflammatories (NSAID); Z79.891 Long term (current) use of opiate analgesic
CPT/HCPCS: 36415; 76856; 80053; 81001; 81025; 83690; 85025; 87086; 99283; 99284

== ENCOUNTER 2023-03-16 13:38 | Emergency (ER) | payer OTHER ==
[~2023-03-16] VITALS: Ht 157.5 cm; Wt 72.6 kg
[~2023-03-16 13:38] MED LIST changes: +FAMO-90 PO; +ONDA-188 PO; +SIME125T38 PO; +TRAM50TA3 PO
[2023-03-16 13:52] VITALS: BP 141/80; PULSE 122; RESP 20; TEMP 97; O2SAT 98
--- NOTE | 2023-03-16 14:09 | NUR ---
r eye irrigated. pt states she feels relief.
[2023-03-16 14:10] VITALS: O2SAT 98
== END 2023-03-16 14:11 | disposition home or self-care (01) ==
LOC: MED 13:38
DX: T26.91XA Corrosion of right eye and adnexa, part unspecified, initial encounter (principal); E03.9 Hypothyroidism, unspecified; Z79.899 Other long term (current) drug therapy; X58.XXXA Exposure to other specified factors, initial encounter; Y93.89 Activity, other specified; Y92.89 Other specified places as the place of occurrence of the external cause; Y99.8 Other external cause status
CPT/HCPCS: 99281

== ENCOUNTER 2023-04-17 04:01 | Emergency (ER) | payer OTHER ==
[~2023-04-17] VITALS: Ht 152.4 cm; Wt 54.4 kg
[2023-04-17 04:02] VITALS: BP 126/82; PULSE 112; RESP 16; TEMP 96.8; O2SAT 99
[2023-04-17 07:28] LABS: BASOPHILS % (AUTO) 0.1 % (0.0-2.0); HEMATOCRIT 32.9 % (36-48); HEMOGLOBIN 11.1 g/dL (12.0-16.0); LYMPHOCYTES # (AUTO) 0.9 K/uL (2.5-16.5); LYMPHOCYTES % (AUTO) 8.6 % (20.5-51.1); MEAN CORPUSCULAR HEMOGLOBIN 27 pg (27-31); MEAN CORPUSCULAR HGB CONC 34 g/dL (33-37); MEAN CORPUSCULAR VOLUME 80.9 fL (80-94); MONOCYTES # (AUTO) 0.8 K/uL (0.8-1.0); MONOCYTES % (AUTO) 8.1 % (1.7-9.3); NEUTROPHILS # (AUTO) 8.6 K/uL (1.8-7.7); NEUTROPHILS % (AUTO) 83.2 % (42.2-75.2); PLATELET COUNT (AUTO) 268 K/uL (140-450); RED BLOOD CELL COUNT(AUTO) 4.06 MIL/uL (4.20-5.40); RED CELL DISTRIBUTION WIDTH 13.1 % (11.6-13.7); WHITE BLOOD COUNT (AUTO) 10.3 K/uL (4.8-10.8)
[2023-04-17 07:43] LABS: ALBUMIN 2.9 g/dL (3.4-5.0); ANION GAP 11.1 (8-16); CALCIUM 8.8 mg/dL (8.5-10.1); CARBON DIOXIDE 27.9 mmol/L (21-32); CREATININE 0.5 mg/dL (0.6-1.3); TOTAL BILIRUBIN 0.5 mg/dL (0.0-1.0); TOTAL PROTEIN, SERUM 6.9 g/dL (6.4-8.2)
[2023-04-17 08:25] VITALS: O2SAT 99
[2023-04-17] MEDS ORDERED: IBUP-2213 PO (09:19)
[2023-04-17 09:49] VITALS: BP 109/66; PULSE 98; RESP 14; O2SAT 98
== END 2023-04-17 09:25 | disposition home or self-care (01) ==
LOC: MED 04:01
DX: R07.89 Other chest pain (principal); R06.02 Shortness of breath; E03.9 Hypothyroidism, unspecified; F15.90 Other stimulant use, unspecified, uncomplicated; Z79.899 Other long term (current) drug therapy
CPT/HCPCS: 36415; 71045; 80053; 83880; 84484; 85025; 85379; 93005; 99285; Q0092

== ENCOUNTER 2023-04-20 03:25 | Inpatient (IN) | payer OTHER ==
[~2023-04-20] VITALS: Ht 149.9 cm; Wt 54.4 kg
[2023-04-20] VITALS (7 sets, daily range): BP systolic 139–179; BP diastolic 86–98; PULSE 122–148; RESP 18–25; TEMP 97–99.1; O2SAT 96–98
[2023-04-20 04:01] LABS: BASOPHILS % (AUTO) 0.1 % (0.0-2.0); HEMATOCRIT 33.3 % (36-48); HEMOGLOBIN 11.1 g/dL (12.0-16.0); LYMPHOCYTES # (AUTO) 1.1 K/uL (2.5-16.5); LYMPHOCYTES % (AUTO) 8.7 % (20.5-51.1); MEAN CORPUSCULAR HEMOGLOBIN 27 pg (27-31); MEAN CORPUSCULAR HGB CONC 33 g/dL (33-37); MEAN CORPUSCULAR VOLUME 80.3 fL (80-94); MONOCYTES # (AUTO) 1.5 K/uL (0.8-1.0); NEUTROPHILS # (AUTO) 9.9 K/uL (1.8-7.7); NEUTROPHILS % (AUTO) 79.2 % (42.2-75.2); PLATELET COUNT (AUTO) 303 K/uL (140-450); RED BLOOD CELL COUNT(AUTO) 4.15 MIL/uL (4.20-5.40); RED CELL DISTRIBUTION WIDTH 13.4 % (11.6-13.7); WHITE BLOOD COUNT (AUTO) 12.5 K/uL (4.8-10.8)
[2023-04-20] MEDS ORDERED: NACL 0.9% 1,000 ML IV ONE (04:10)
[2023-04-20 04:11] LABS: ANION GAP 15.5 (8-16); CALCIUM 8.7 mg/dL (8.5-10.1); CARBON DIOXIDE 22.2 mmol/L (21-32); CREATININE 0.8 mg/dL (0.6-1.3); POTASSIUM 3.7 mmol/L (3.5-5.1)
[2023-04-20] MEDS ORDERED: MORPHINE SULFATE 4 MG/ML SYR IVP ONE (04:15)
[2023-04-20] MEDS ORDERED: DIAZEPAM PFS 10 MG/2 ML SYR IVP ONE (05:35)
[2023-04-20 06:30] LABS: AMPHETAMINE, URINE POSITIVE ng/ml (NEG <=1000); BARBITURATE, URINE NEGATIVE ng/ml (NEG <=200); BENZODIAZEPINE, URINE NEGATIVE ng/mL (NEG <=200); CANNABINOID, URINE NEGATIVE ng/mL (NEG <=50); COCAINE, URINE NEGATIVE ng/mL (NEG <=300); OPIATE, URINE POSITIVE ng/mL (NEG <=2000); PHENCYCLIDINE SCREEN,URINE NEGATIVE ng/mL (NEG <=25)
[2023-04-20] MEDS ORDERED: KETOROLAC 15 MG/ML VIAL IVP ONE (09:10)
[2023-04-20] MEDS ORDERED: PROPRANOLOL 1 MG/ML VIAL IVP ONE (09:10)
[2023-04-20] MEDS ORDERED: LORazepam 2 MG/ML VIAL IVP ONE (09:15)
[2023-04-20] MEDS ORDERED: POTASSIUM CHLORIDE 10 MEQ TABER PO PRN (09:45)
[2023-04-20] MEDS ORDERED: MAGNESIUM OXIDE 400 MG TAB PO PRN (09:45)
[2023-04-20] MEDS ORDERED: ZOLPIDEM 5 MG TAB PO PRN (09:45)
[2023-04-20] MEDS ORDERED: KCL 20 MEQ IN 100 mL PREMIX 200 ML IV PRN (09:45)
[2023-04-20] MEDS ORDERED: NACL 0.9% 1,000 ML IV SCH (09:45)
[2023-04-20] MEDS ORDERED: ONDANSETRON 4 MG/2 ML VIAL IVP PRN (09:45)
[2023-04-20] MEDS: ACETAMINOPHEN 325 MG TAB PO PRN (10:03)
[2023-04-20] MEDS: NACL 0.9% 1,000 ML IV SCH ×2 (11:05→22:15)
[2023-04-20] MEDS: methIMAzole 5 MG TAB PO SCH (11:07)
[2023-04-20] MEDS: HYDROcodone/APAP 5/325 MG 1 TAB TAB PO PRN ×3 (15:16→23:48)
[2023-04-21] VITALS (12 sets, daily range): BP systolic 112–154; BP diastolic 61–83; PULSE 102–137; RESP 18–20; TEMP 97–100.3; O2SAT 94–100
[2023-04-21] MEDS: HYDROcodone/APAP 5/325 MG 1 TAB TAB PO PRN ×2 (05:21→22:37)
[2023-04-21] MEDS: LORazepam 1 MG TAB PO PRN ×2 (05:21→10:16)
[2023-04-21] MEDS: NACL 0.9% 1,000 ML IV SCH ×3 (05:31→22:37)
[2023-04-21 06:52] LABS: EOSINOPHILS % (AUTO) 0.1 % (0.0-4.0); HEMATOCRIT 29.8 % (36-48); HEMOGLOBIN 10.1 g/dL (12.0-16.0); LYMPHOCYTES # (AUTO) 2.1 K/uL (2.5-16.5); LYMPHOCYTES % (AUTO) 19.8 % (20.5-51.1); MEAN CORPUSCULAR HEMOGLOBIN 27 pg (27-31); MEAN CORPUSCULAR HGB CONC 34 g/dL (33-37); MEAN CORPUSCULAR VOLUME 79.9 fL (80-94); MONOCYTES # (AUTO) 1.5 K/uL (0.8-1.0); MONOCYTES % (AUTO) 13.5 % (1.7-9.3); NEUTROPHILS # (AUTO) 7.2 K/uL (1.8-7.7); NEUTROPHILS % (AUTO) 66.6 % (42.2-75.2); PLATELET COUNT (AUTO) 275 K/uL (140-450); RED BLOOD CELL COUNT(AUTO) 3.74 MIL/uL (4.20-5.40); RED CELL DISTRIBUTION WIDTH 12.8 % (11.6-13.7); WHITE BLOOD COUNT (AUTO) 10.8 K/uL (4.8-10.8)
[2023-04-21 06:54] LABS: ANION GAP 11.5 (8-16); CALCIUM 7.9 mg/dL (8.5-10.1); CARBON DIOXIDE 25.7 mmol/L (21-32); CREATININE 0.4 mg/dL (0.6-1.3); POTASSIUM 3.2 mmol/L (3.5-5.1)
[2023-04-21] MEDS: methIMAzole 5 MG TAB PO SCH (08:33)
[2023-04-21] MEDS: MORPHINE SULFATE 4 MG/ML SYR IVP PRN ×3 (08:34→17:02)
[2023-04-21] MEDS ORDERED: atenoloL 25 MG TAB PO SCH (09:00)
[2023-04-21] MEDS ORDERED: MAG SULF 2000 MG/WATER PREMIX 100 ML IV ONE (09:10)
[2023-04-21] MEDS ORDERED: methIMAzole 5 MG TAB PO SCH (12:32)
[2023-04-21] MEDS: CHOLESTYRAMINE 4 GM/9 GM PKT PO SCH ×3 (13:07→20:35)
[2023-04-21 15:58] LABS: APPEARANCE,URINE CLEAR (CLEAR); BILIRUBIN,URINE NEGATIVE (NEGATIVE); BLOOD, URINE TRACE-I (NEGATIVE); COLOR,URINE YELLOW (YELLOW); LEUKOCYTE ESTERASE ,URINE NEGATIVE (NEGATIVE); NITRITE, URINE NEGATIVE (NEGATIVE); PROTEIN,URINE NEGATIVE (NEGATIVE); UGLUCOSE NEGATIVE (NEGATIVE); UROBILINOGEN,URINE 0.2 EU/dL (0.2 - 1)
[2023-04-21 16:13] LABS: RBC,URINE 0-5 /HPF (0-5); WBC,URINE 0-5 /HPF (0-5)
[2023-04-21 16:14] LABS: BACTERIA,URINE FEW /HPF (None Seen); MUCUS,URINE 1+ /LPF (None Seen); SQUAMOUS EPITHELIAL CELL,UR 0-3 (FEW) /LPF (0-3 (FEW)); TRICHOMONAS,URINE None Seen /HPF (None Seen); YEAST,URINE None Seen /HPF (None Seen)
[2023-04-21] MEDS: ACETAMINOPHEN 325 MG TAB PO PRN (20:36)
[2023-04-22] VITALS (11 sets, daily range): BP systolic 110–149; BP diastolic 62–84; PULSE 95–114; RESP 16–20; TEMP 97.7–99.8; O2SAT 94–96
[2023-04-22] MEDS: HYDROcodone/APAP 5/325 MG 1 TAB TAB PO PRN ×2 (04:26→08:08)
[2023-04-22 07:02] LABS: BASOPHILS % (AUTO) 0.1 % (0.0-2.0); EOSINOPHILS % (AUTO) 0.3 % (0.0-4.0); HEMATOCRIT 26.9 % (36-48); HEMOGLOBIN 9.2 g/dL (12.0-16.0); LYMPHOCYTES % (AUTO) 12.6 % (20.5-51.1); MEAN CORPUSCULAR HEMOGLOBIN 27 pg (27-31); MEAN CORPUSCULAR HGB CONC 34 g/dL (33-37); MEAN CORPUSCULAR VOLUME 79.6 fL (80-94); MONOCYTES % (AUTO) 11.9 % (1.7-9.3); NEUTROPHILS # (AUTO) 6.2 K/uL (1.8-7.7); NEUTROPHILS % (AUTO) 75.1 % (42.2-75.2); PLATELET COUNT (AUTO) 241 K/uL (140-450); RED BLOOD CELL COUNT(AUTO) 3.38 MIL/uL (4.20-5.40); RED CELL DISTRIBUTION WIDTH 13.1 % (11.6-13.7); WHITE BLOOD COUNT (AUTO) 8.2 K/uL (4.8-10.8)
[2023-04-22 07:08] LABS: ANION GAP 9.7 (8-16); CALCIUM 8.1 mg/dL (8.5-10.1); CARBON DIOXIDE 25.9 mmol/L (21-32); CREATININE 0.4 mg/dL (0.6-1.3); POTASSIUM 3.6 mmol/L (3.5-5.1)
[2023-04-22] MEDS: CHOLESTYRAMINE 4 GM/9 GM PKT PO SCH ×3 (08:07→15:54)
[2023-04-22] MEDS ORDERED: PROPRANOLOL 20 MG TAB PO SCH (09:00)
[2023-04-22] MEDS ORDERED: methIMAzole 5 MG TAB PO SCH (09:00)
[2023-04-22] MEDS ORDERED: MAG SULF 2000 MG/WATER PREMIX 100 ML IV PRN (09:50)
[2023-04-22] MEDS ORDERED: MAG SULF 2000 MG/WATER PREMIX 50 ML IV SCH ×2 (10:00→13:00)
[2023-04-22] MEDS: NACL 0.9% 1,000 ML IV SCH (11:36)
[2023-04-22] MEDS: MORPHINE SULFATE 4 MG/ML SYR IVP PRN (11:46)
[2023-04-22] MEDS ORDERED: TAP5 PO (13:31)
[2023-04-22] MEDS ORDERED: PROP20TA29 PO (15:50)
[2023-04-22 17:19] LABS: T3 UPTAKE 56 % (24 - 39)
[2023-04-23] MEDS ORDERED: methIMAzole 5 MG TAB PO SCH (09:00)
[2023-04-26 06:08] LABS: CK-BB 0 % (0); CK-MB 0 % (0-3); CK-MM 100 % (97-100); Macro Type 1 0 % (Not Observed); Macro Type 2 0 % (Not Observed)
== END 2023-04-22 16:55 | disposition home or self-care (01) | DRG 199 ==
LOC: MED 03:25 → EEVIPCON 09:46 → MTU 09:46 → OBSVTOIN 09:46 → MTU 11:15
PROVIDERS: ADMIT Internal Medicine; ATTEND Internal Medicine
DX: I16.9 Hypertensive crisis, unspecified (principal); R65.11 Systemic inflammatory response syndrome (SIRS) of non-infectious origin with acute organ dysfunction; N17.9 Acute kidney failure, unspecified; D64.9 Anemia, unspecified; D72.829 Elevated white blood cell count, unspecified; E05.90 Thyrotoxicosis, unspecified without thyrotoxic crisis or storm; R00.0 Tachycardia, unspecified; F15.90 Other stimulant use, unspecified, uncomplicated; F17.200 Nicotine dependence, unspecified, uncomplicated
CPT/HCPCS: 36415; 71045; 71275; 80048; 80305; 81001; 82552; 83735; 84439; 84443; 84479; 84484; 84703; 85025; 85379; 87081; 93005; 96374; 96375; 99291; 99292; J1800; J1885; J2060; J2270; J3360; J3475; Q0092; Q9967

== ENCOUNTER 2023-07-31 22:58 | Emergency (ER) | payer OTHER ==
[~2023-07-31] VITALS: Ht 149.9 cm; Wt 49.9 kg
[~2023-07-31 22:58] MED LIST changes: -ACET-8905 PO; -BEN10 PO; -FAMO-90 PO; -IBUP-2213 PO; -LORA-476 PO; -OMEP40EC24 PO; -ONDA-188 PO; -ONDA-188 SL; -ONDA8TAB87 PO; +PROP20TA29 PO; -SIME125T38 PO; +TAP5 PO; -TRAM50TA3 PO
[2023-07-31 23:17] VITALS: BP 154/106; PULSE 138; RESP 16; TEMP 98.3; O2SAT 98
[2023-08-01 00:15] VITALS: O2SAT 98
[2023-08-01] MEDS ORDERED: NACL 0.9% 1,000 ML IV ONE (00:30)
[2023-08-01 00:42] LABS: BASOPHILS % (AUTO) 0.4 % (0.0-2.0); EOSINOPHILS % (AUTO) 0.3 % (0.0-4.0); HEMATOCRIT 39.5 % (36-48); HEMOGLOBIN 12.9 g/dL (12.0-16.0); LYMPHOCYTES # (AUTO) 2.2 K/uL (2.5-16.5); LYMPHOCYTES % (AUTO) 32.9 % (20.5-51.1); MEAN CORPUSCULAR HEMOGLOBIN 27 pg (27-31); MEAN CORPUSCULAR HGB CONC 33 g/dL (33-37); MEAN CORPUSCULAR VOLUME 81.3 fL (80-94); MONOCYTES # (AUTO) 0.5 K/uL (0.8-1.0); MONOCYTES % (AUTO) 8.2 % (1.7-9.3); NEUTROPHILS # (AUTO) 3.9 K/uL (1.8-7.7); NEUTROPHILS % (AUTO) 58.2 % (42.2-75.2); PLATELET COUNT (AUTO) 367 K/uL (140-450); RED BLOOD CELL COUNT(AUTO) 4.86 MIL/uL (4.20-5.40); RED CELL DISTRIBUTION WIDTH 13.9 % (11.6-13.7); WHITE BLOOD COUNT (AUTO) 6.7 K/uL (4.8-10.8)
[2023-08-01 01:02] LABS: ALBUMIN 3.5 g/dL (3.4-5.0); ANION GAP 12.7 (8-16); CALCIUM 9.2 mg/dL (8.5-10.1); CARBON DIOXIDE 31.5 mmol/L (21-32); CREATININE 0.5 mg/dL (0.6-1.3); POTASSIUM 4.2 mmol/L (3.5-5.1); TOTAL BILIRUBIN 0.3 mg/dL (0.0-1.0)
[2023-08-01 02:10] LABS: APPEARANCE,URINE CLEAR (CLEAR); BILIRUBIN,URINE NEGATIVE (NEGATIVE); BLOOD, URINE 2+ (NEGATIVE); COLOR,URINE YELLOW (YELLOW); LEUKOCYTE ESTERASE ,URINE NEGATIVE (NEGATIVE); NITRITE, URINE NEGATIVE (NEGATIVE); PH,URINE 6.5 (5.0-9.0); PROTEIN,URINE NEGATIVE (NEGATIVE); UGLUCOSE NEGATIVE (NEGATIVE); UROBILINOGEN,URINE 0.2 EU/dL (0.2 - 1)
[2023-08-01 02:19] LABS: RBC,URINE 0-5 /HPF (0-5); WBC,URINE 0-5 /HPF (0-5)
[2023-08-01 02:20] LABS: BACTERIA,URINE >30 (MANY) /HPF (None Seen); MUCUS,URINE 1+ /LPF (None Seen); SQUAMOUS EPITHELIAL CELL,UR 0-3 (FEW) /LPF (0-3 (FEW))
[2023-08-01 02:22] LABS: AMPHETAMINE, URINE POSITIVE ng/ml (NEG <=1000); BARBITURATE, URINE NEGATIVE ng/ml (NEG <=200); BENZODIAZEPINE, URINE NEGATIVE ng/mL (NEG <=200); CANNABINOID, URINE NEGATIVE ng/mL (NEG <=50); COCAINE, URINE NEGATIVE ng/mL (NEG <=300); OPIATE, URINE NEGATIVE ng/mL (NEG <=2000); PHENCYCLIDINE SCREEN,URINE NEGATIVE ng/mL (NEG <=25)
== END 2023-08-01 02:25 | disposition left against medical advice (07) ==
LOC: MED 22:58
DX: R10.30 Lower abdominal pain, unspecified (principal); M54.50 Low back pain, unspecified; K59.00 Constipation, unspecified; E03.9 Hypothyroidism, unspecified; Z79.899 Other long term (current) drug therapy
CPT/HCPCS: 36415; 80053; 80305; 81001; 83690; 84703; 85025; 87086; 96360; 99283; J7030

== ENCOUNTER 2023-08-23 18:42 | Emergency (ER) | payer MEDICAID, OTHER ==
[~2023-08-23] VITALS: Ht 149.9 cm; Wt 49.9 kg
[2023-08-23 18:47] VITALS: BP 146/47; PULSE 150; RESP 20; TEMP 102; O2SAT 18
[2023-08-23 21:45] VITALS: BP 139/69; PULSE 138; RESP 29; TEMP 98.8
[2023-08-23] MEDS ORDERED: NACL 0.9% 2,000 ML IV ONE (22:00)
[2023-08-23] MEDS ORDERED: KETOROLAC 30 MG/ML VIAL IVP ONE (22:00)
[2023-08-23 22:26] LABS: BASOPHILS % (AUTO) 0.2 % (0.0-2.0); HEMATOCRIT 36.3 % (36-48); HEMOGLOBIN 12.1 g/dL (12.0-16.0); LYMPHOCYTES # (AUTO) 1.1 K/uL (2.5-16.5); LYMPHOCYTES % (AUTO) 16.1 % (20.5-51.1); MEAN CORPUSCULAR HEMOGLOBIN 27 pg (27-31); MEAN CORPUSCULAR HGB CONC 34 g/dL (33-37); MEAN CORPUSCULAR VOLUME 80.2 fL (80-94); MONOCYTES # (AUTO) 0.7 K/uL (0.8-1.0); MONOCYTES % (AUTO) 10.7 % (1.7-9.3); NEUTROPHILS # (AUTO) 5.1 K/uL (1.8-7.7); PLATELET COUNT (AUTO) 268 K/uL (140-450); RED BLOOD CELL COUNT(AUTO) 4.52 MIL/uL (4.20-5.40); RED CELL DISTRIBUTION WIDTH 14.1 % (11.6-13.7)
[2023-08-23 22:39] LABS: APPEARANCE,URINE CLEAR (CLEAR); BILIRUBIN,URINE 1+ (NEGATIVE); BLOOD, URINE TRACE-I (NEGATIVE); COLOR,URINE YELLOW (YELLOW); LEUKOCYTE ESTERASE ,URINE NEGATIVE (NEGATIVE); NITRITE, URINE NEGATIVE (NEGATIVE); PROTEIN,URINE NEGATIVE (NEGATIVE); UGLUCOSE NEGATIVE (NEGATIVE); UROBILINOGEN,URINE 0.2 EU/dL (0.2 - 1)
[2023-08-23 22:41] LABS: ALBUMIN 2.7 g/dL (3.4-5.0); ANION GAP 11.9 (8-16); CALCIUM 8.5 mg/dL (8.5-10.1); CARBON DIOXIDE 28.7 mmol/L (21-32); CREATININE 0.5 mg/dL (0.6-1.3); POTASSIUM 3.6 mmol/L (3.5-5.1); TOTAL BILIRUBIN 0.3 mg/dL (0.0-1.0); TOTAL PROTEIN, SERUM 7.4 g/dL (6.4-8.2)
[2023-08-23 22:45] LABS: FLU A ANTIGEN negative (NEGATIVE); FLU B ANTIGEN NEGATIVE (NEGATIVE)
[2023-08-23 22:56] LABS: AMPHETAMINE, URINE POSITIVE ng/ml (NEG <=1000); BARBITURATE, URINE NEGATIVE ng/ml (NEG <=200); BENZODIAZEPINE, URINE NEGATIVE ng/mL (NEG <=200); CANNABINOID, URINE NEGATIVE ng/mL (NEG <=50); COCAINE, URINE NEGATIVE ng/mL (NEG <=300); OPIATE, URINE NEGATIVE ng/mL (NEG <=2000); PHENCYCLIDINE SCREEN,URINE NEGATIVE ng/mL (NEG <=25)
[2023-08-23 22:57] LABS: BACTERIA,URINE >30 (MANY) /HPF (None Seen); ICTOTEST POSITIVE (NEGATIVE); MUCUS,URINE 1+ /LPF (None Seen); RBC,URINE 0-5 /HPF (0-5); SQUAMOUS EPITHELIAL CELL,UR 0-3 (FEW) /LPF (0-3 (FEW)); WBC,URINE 0-5 /HPF (0-5)
[2023-08-24 00:45] VITALS: O2SAT 100
[2023-08-24] MEDS ORDERED: IBUP-1842 PO (01:14)
[2023-08-24] MEDS ORDERED: ACET-10509 PO (01:14)
== END 2023-08-24 01:50 | disposition home or self-care (01) ==
LOC: MED 18:42
DX: B34.9 Viral infection, unspecified (principal); R00.0 Tachycardia, unspecified; E86.0 Dehydration; Z20.822 Contact with and (suspected) exposure to COVID-19; E03.9 Hypothyroidism, unspecified; Z79.899 Other long term (current) drug therapy; Z79.1 Long term (current) use of non-steroidal anti-inflammatories (NSAID)
CPT/HCPCS: 36415; 71045; 80053; 80305; 81001; 81025; 83605; 85025; 87040; 87086; 87426; 87804; 96361; 96374; 99284; J1885; J7030; Q0092